=== PATIENT | female | born 1985 | race African-American/Black ===

== ENCOUNTER 2022-08-03 18:23 | Emergency (ER) | payer SELFPAY ==
[~2022-08-03] VITALS: Ht 162.6 cm; Wt 92.1 kg
[2022-08-03] MEDS ORDERED: ONDANSETRON HCL INJ 2MG/ML 2ML 2 MG/ML VIAL IV STA (19:06)
[2022-08-03] MEDS ORDERED: SODIUM CHLORIDE 0.9% 1000ML 1,000 ML IV SCH (19:06)
[2022-08-03] MEDS ORDERED: KETOROLAC TROMETHAMINE 30 MG/ML VIAL IV STA (19:06)
[2022-08-03] MEDS ORDERED: SODIUM CHLORIDE FLUSH 10 ML SYR IV PRN (19:06)
[2022-08-03 19:21] LABS: BASOPHILS # (AUTO) 0.1 (0.0-0.1); BASOPHILS % 0.9 % (0.0-1.0); EOSINOPHILS # (AUTO) 0.1 (0.0-0.4); EOSINOPHILS % 1.5 % (0.0-6.0); HEMATOCRIT 38.4 % (34.2-44.1); HEMOGLOBIN 12.6 g/dL (12.0-16.0); LYMPHOCYTES # (AUTO) 1.7 (1.0-3.2); LYMPHOCYTES % 30.5 % (18.0-39.1); MEAN CORPUSCULAR HEMOGLOBIN 28.4 pg (28-32); MEAN CORPUSCULAR HGB CONC 32.8 g/dL (31-35); MEAN CORPUSCULAR VOLUME 86.5 fL (81-99); MONOCYTES # (AUTO) 0.5 (0.2-0.8); NEUTROPHILS # (AUTO) 3.2 (2.1-6.9); NEUTROPHILS % 57.9 % (38.7-80.0); PLATELET COUNT 276 x10e3/uL (140-360); RED BLOOD COUNT 4.44 x10e6/uL (3.6-5.1); RED CELL DISTRIBUTION WIDTH 12.4 % (11.7-14.4)
[2022-08-03 19:28] LABS: INR 0.9
[2022-08-03 19:38] LABS: LIPASE 24 U/L (8-78)
[2022-08-03 19:40] LABS: ALBUMIN 3.9 g/dL (3.5-5.0); ANION GAP 15.3 mmol/L (8-16); CALCIUM 9.2 mg/dL (8.4-10.2); CREATININE, SERUM 0.77 mg/dL (0.57-1.11); POTASSIUM 3.3 mmol/L (3.5-5.1)
[2022-08-03 21:25] LABS: AMPHETAMINES SCREEN,URINE NEGATIVE (NEGATIVE); BENZODIAZEPINES SCREEN,URINE NEGATIVE (NEGATIVE); PHENCYCLIDINE SCREEN,URINE NEGATIVE (NEGATIVE)
[2022-08-03 21:33] LABS: CLARITY,URINE CLEAR (CLEAR); COLOR,URINE YELLOW (YELLOW); KETONES,URINE NEGATIVE (NEGATIVE); LEUKOCYTE ESTERASE ,URINE TRACE (NEGATIVE); NITRITE,URINE NEGATIVE (NEGATIVE); PROTEIN,URINE DIPSTICK NEGATIVE (NEGATIVE); URINE UROBILINOGEN 0.2 mg/dL (0.2 - 1)
[2022-08-03 21:56] LABS: BACTERIA,URINE MANY /HPF; EPITHELIAL CELLS,URINE MANY /LPF; RBC,URINE 0-5 /HPF (0-5)
[2022-08-03] MEDS ORDERED: POTASSIUM CHLORIDE 20 MEQ TAB CR PO STA (22:35)
[2022-08-03] MEDS ORDERED: NAPROSYN500 MG PO (22:40)
[2022-08-03] MEDS ORDERED: CEFDINIR300 MG PO (22:40)
[2022-08-03] MEDS ORDERED: ONDANSETRON ODT4 MG PO (22:40)
== END 2022-08-03 22:50 | disposition home or self-care (01) ==
LOC: ER 18:31
DX: R10.11 Right upper quadrant pain (principal); K80.20 Calculus of gallbladder without cholecystitis without obstruction; N30.90 Cystitis, unspecified without hematuria
CPT/HCPCS: 36415; 76705; 80053; 80307; 81001; 83690; 84702; 85025; 85610; 85730; 99284; J1885; J2405; J7030